=== PATIENT | male | born 2000 | race Caucasian/White ===

== ENCOUNTER 2024-07-09 18:06 | Emergency (ER) | payer OTHER, SELFPAY ==
[2024-07-09 18:11] VITALS: BP 152/80; PULSE 87; RESP 18; TEMP 36.8; O2SAT 98; BMI 29.3
--- NOTE | 2024-07-09 18:43 | ED_ITS ---
HPI - General Adult General Date Seen: 07/09/24 Chief complaint: Eye Problems Stated complaint: metal shaving in eye Time Seen by Provider: 07/09/24 18:43 History of Present Illness HPI narrative: This is a generally healthy 23-year-old male presenting to the ER today with a left eye pain and foreign body sensation. He was working on his pole barn this afternoon about 3:00 p.m.. He was putting some screws into the sheet metal when a screw fell and hit him in the eye. He thinks a small piece of pain to her material from the screw may have gotten into his left eye. He has been having pain, irritation of his eye, and pain drinking ever since then. He tried to wash his eye out with saline drops but still has the foreign body sensation. Vision has been blurry but otherwise normal. Right eye normal. He is generally healthy. He believes he is up-to-date with his tetanus. No other injuries. Related Data Home Medications ?Medication ?Instructions ?Recorded ?Confirmed montelukast 10 mg tablet 10 mg PO DAILY 07/09/24 07/09/24 Allergies Allergy/AdvReac Type Severity Reaction Status Date / Time No Known Drug Allergies Allergy Verified 07/09/24 18:13 [facility] Medical History (Updated 07/09/24 @ 19:39 by Timothy Ball RN) No significant past medical history Surgical History (Updated 07/09/24 @ 19:39 by Timothy Ball RN) No significant past surgical history Social History Smoking Status: Never smoker Second hand tobacco smoke exposure: No How often do you have a drink containing alcohol: never AUDIT-C Alcohol total score: 0 Non-prescribed substance use: denies use Exam Narrative: Exam Narrative: Constitutional: Appears well-developed and well-nourished. Active. Polite HENT: Head: Atraumatic. No signs of injury. Nose: No nasal discharge. Mouth/Throat: Mucous membranes are moist. Pharynx is normal. Tonsils symmetric. Uvula midline. Airway patent. Eyes: PERRLA, EOMI. No exophthalmos or enophthalmos. Conjunctiva slightly injected on the left sclera. Normal on the right. Initially performed evaluation for foreign body under the patient's left upper lower lids. No foreign body detected. After week everted the patient's left upper eyelid we did reveal a very small black foreign body which I have removed using a sterile cotton tip applicator. Slit Lamp Exam: Lids: No foreign body noted in detailed exam upper and lower lids/margins Anterior Chamber: No cells or flare, No hyphema. No hypopyon. Cornea: No foreign body. Fluorescein staining: Multiple tiny linear vertical c orneal abrasions suggestive up probable foreign body under the upper lid. Neck: Normal range of motion. Neck supple. No adenopathy. No stridor. Cardiovascular: Normal rate and regular rhythm. No murmur heard. No murmurs, rubs, or gallops. Brisk capillary refill Pulmonary/Chest: Effort normal. No stridor. No respiratory distress. No wheezes.No rhonchi. No rales. No retractions. Abdominal: Soft. Bowel sounds are normal. No distension. No mass. There is no tenderness. There is no rebound and no guarding. Musculoskeletal: Normal range of motion. No edema. No tenderness. No deformity. Neurological: Alert. Normal strength. No cranial nerve deficit or sensory deficit. Coordination normal. GCS eye subscore is 4. GCS verbal subscore is 5. GCS motor subscore is 6. Skin: Skin is warm. No rash noted. Const: Vital Signs, click to edit/add: Vital Signs - 24 hr 07/09/24 18:11 07/09/24 19:40 Temperature 98.3 F 98.3 F Pulse Rate [Right Pulse Oximeter] 87 80 Respiratory Rate 18 18 Blood Pressure [Ri ght Upper Arm] 152/80 H 135/70 Pulse Oximetry 98 98 Oxygen Delivery Me thod Room Air Room Air Course Vital Signs Vital signs: Initial Vital Signs Temperature 98.3 F 07/09/24 18:11 Temperature Source Temporal Artery Scan 07/09/24 18:11 Pulse Rate 87 07/09/24 18:11 Respiratory Rate 18 07/09/24 18:11 Blood Pressure 152/80 H 07/09/24 18:11 Blood Pressure Mean 104 07/09/24 18:11 Blood Pressure Position Sitting 07/09/24 18:11 Pulse Oximetry 98 07/09/24 18:11 Oxygen Delivery Method Room Air 07/09/24 18:11 Vital Signs Temperature 98.3 F 07/09/24 18:11 Pulse Rate 87 07/09/24 18:11 Respiratory Rate 18 07/09/24 18:11 Blood Pressure 152/80 H 07/09/24 18:11 Pulse Oximetry 98 07/09/24 18:11 Oxygen Delivery Method Room Air 07/09/24 18:11 Temperature 98.3 F 07/09/24 19:40 Pulse Rate 80 07/09/24 19:40 Respiratory Rate 18 07/09/24 19:40 Blood Pressure 135/70 07/09/24 19:40 Pulse Oximetry 98 07/09/24 19:40 Oxygen Delivery Method Room Air 07/09/24 19:40 Medications Administered Medications: Generic Name Dose Route Start Last Admin Trade Name Pat PRN Reason Stop Dose Admin Gentamicin Sulfate 2 drop 07/09/24 21:00 07/09/24 19:35 Gentamicin 0.3% Ophth EYE-LEFT 2 drop TID FELIX Administration Medical Decision Making MDM Narrative Medical decision making narrative: This patient presents with left eye discomfort. He was working on his pole barn this afternoon when a screw fell and hit him in the eye. He the screw did not get stuck in his eye but he thinks a small piece of metal may have fallen into his eye and he has pain ever since then. Fluorescein exam shows staining consistent multiple horizontal corneal abrasions. We did detect a very small foreign body underneath his upper lid which I removed. I cannot identify any retained lid foreign bodies or corneal foriegn body at this time. I do not see any rust rings. No corneal ulcers. No signs of retinal abnormalities, dendritic lesions, open globe, acute glaucoma, or other serious eye disease. No signs of anterior chamber involvement such as endopthalmitis at this point. No sign of bacterial conjunctivitis. Lids are normal. PLAN: 1. Topical antibiotics- gentamicin 0.3% solution 2 drops in the left eye see q.6 hours while awake (discharged home with bottle) 2. Pain management with orals meds will use [id number] Tylenol ibuprofen. Prescription 3 [facility] for [place]-4 tablets 3. Close f/u of eye clinic and/or return if worsening symptoms Discharge Plan Discharge Clinical Impression: Corneal abrasion, Foreign body Patient Disposition: Home, Self-Care Condition: Stable Instructions: Corneal Abrasion (DC) Additional Instructions: As we discussed, it looks like you had a small foreign body underneath her upper eyelid. We were able to remove it here in the ER tonight. We can see multiple vertical linear scratches on your cornea from this foreign body rubbing on the surface of your eye when you blink. It will take 1-2 days for these scratches to heal in for your eye to feel better. Use the antibiotic drops 3 times daily to help prevent infections in your eye Try to rest your eye. Keep it closed as much as possible for the next 24-36 hours. To manage pain: Use [id number] pain medications such as ibuprofen or Tylenol . If pain is not controlled by these meds, use the prescription pain killers ([place]). Be careful with [place] because it can cause dizziness, drowsiness, and you should not drive while taking it. [place] can be addictive so avoid taking it unless you need to. If you are not dramatically improved by Wednesday, return to the ER or call the [facility] ophthalmology clinic [phone], to arrange a follow-up recheck appointment. Prescriptions: No Action montelukast 10 mg tablet 10 mg PO DAILY Follow Up/Referrals: Yousif Strickland MD [Primary Care Provider] - Stand Alone Forms: [email or web address] Info Instructions
[2024-07-09] MEDS: GENTAMICIN 0.3% OPHTH 2 DROP EYE-LEFT (19:35)
[2024-07-09 19:40] VITALS: BP 135/70; PULSE 80; RESP 18; TEMP 36.8; O2SAT 98
[2024-07-09 20:16] VITALS: BP 135/70; PULSE 80; RESP 18; TEMP 36.8
== END 2024-07-09 20:16 | disposition home or self-care (01) ==
LOC: ED 19:30
PROVIDERS: Emergency Provider Emergency Medicine; PCP Family Medicine
DX: T15.02XA Foreign body in cornea, left eye, initial encounter (principal)
CPT/HCPCS: 99282; 99283; A9270